=== PATIENT | male | born 1975 | race Two or more races ===

== ENCOUNTER 2018-07-31 02:50 | Observation (INO) | payer OTHER ==
[~2018-07-31] VITALS: Ht 180.3 cm; Wt 73.1 kg
--- NOTE | 2018-07-31 03:09 | NUR ---
RECORDS BEING REQ FROM [facility] TRIAGE NURSE STATES WAS ABLE TO ASCERTAIN THROUGH HOUSE PRINCIPAL THAT PT HAD SURGERY THERE ON THIS LOWER EXTREMITY RECENTLY.
[2018-07-31] MEDS ORDERED: RIVA20TA PO (04:03)
[2018-07-31] MEDS ORDERED: MORPHINE SULFATE 4 MG/ML, 1ML ONE (04:26)
[2018-07-31] MEDS ORDERED: ONDANSETRON 2MG/ML, 2ML ONE (04:27)
[2018-07-31 04:28] LABS: BASOPHILS # (AUTO) 0.04 x10^3/uL (0-0.1); BASOPHILS % (AUTO) 1 % (0-1); EOSINOPHILS # (AUTO) 0.24 x10^3/uL (0-0.4); EOSINOPHILS % (AUTO) 4 % (1-7); LYMPHOCYTES # (AUTO) 1.93 x10^3/uL (1-3.4); LYMPHOCYTES % (AUTO) 34 % (22-44); MD NO; MEAN CORPUSCULAR HEMOGLOBIN 31.3 pg (27.5-34.5); MEAN CORPUSCULAR HGB CONC 33.8 g/dL (33.2-36.2); MEAN CORPUSCULAR VOLUME 92.5 fL (81-97); MEAN PLATELET VOLUME 6.6 fL (7.4-10.4); MONOCYTES # (AUTO) 0.38 x10^3/uL (0.2-0.8); MONOCYTES % (AUTO) 7 % (2-9); NEUTROPHILS # (AUTO) 3.12 x10^3/uL (1.8-6.8); NEUTROPHILS % (AUTO) 55 % (42-75); PLATELET COUNT 418 x10^3/uL (130-400); RED CELL DISTRIBUTION WIDTH 15.5 % (9.4-14.8)
[2018-07-31] MEDS ORDERED: ONDANSETRON 2MG/ML, 2ML IVPush ONE (04:30)
[2018-07-31] MEDS ORDERED: MORPHINE SULFATE 4 MG/ML, 1ML IVPush PRN ×2 (04:30→06:30)
--- NOTE | 2018-07-31 04:33 | NUR ---
IV SITE STARTED, PT MEDICATED PER MAR
[2018-07-31 04:34] LABS: INTERNATIONAL NORMALIZED RATIO 1.55 (0.93-1.1); PROTHROMBIN TIME 16.2 Seconds (9.6-11.5)
[2018-07-31 04:36] LABS: ALANINE AMINOTRANSFERASE 24 U/L (12-78); ALBUMIN 3.1 g/dL (3.4-5.0); ANION GAP 6 mmol/L (5-15); CALCIUM 7.8 mg/dL (8.5-10.1); CHLORIDE 109 mmol/L (98-107); CREATININE 0.67 mg/dL (0.7-1.3)
[2018-07-31 04:39] LABS: ALKALINE PHOSPHATASE 66 U/L (45-117); BILIRUBIN,TOTAL 0.5 mg/dL (0.2-1.0); TOTAL PROTEIN 6.5 g/dL (6.4-8.2)
[2018-07-31] MEDS ORDERED: HEPARIN 25,000 UNITS/500ML PMX 500 ML IV PRN (05:30)
[2018-07-31] MEDS ORDERED: HEPARIN 5,000 UNITS/ML, 1ML IV PRN (05:30)
[2018-07-31] MEDS ORDERED: HEPARIN 5,000 UNITS/ML, 1ML IV ONE (05:30)
[2018-07-31] MEDS ORDERED: HEPARIN 5,000 UNITS/ML, 1ML ONE (05:30)
[2018-07-31] MEDS ORDERED: HEPARIN 25,000 UNITS/500ML PMX 500 ML ONE (05:33)
--- NOTE | 2018-07-31 05:55 | NUR ---
PT RESTING CALMLY, PROVIDED PT WITH XTRA WARM BLANKETS, PT MEDICATED PER MAR, IV HEPARIN GTT CHECKED BY 2 RN'S AND STARTED PER PROTOCOL. CALL LIGHT WITHIN REACH, AWAITING ROOM FOR TRANSFER
[2018-07-31 06:30] VITALS: BP 102/69
[2018-07-31] MEDS ORDERED: ONDANSETRON 2MG/ML, 2ML IVPush PRN ×2 (06:30→07:00)
[2018-07-31] MEDS ORDERED: ACETAMINOPHEN 325 MG TABLET PO PRN (07:00)
[2018-07-31] MEDS ORDERED: BISACODYL 10 MG SUPP PR PRN (07:00)
[2018-07-31] MEDS ORDERED: DOCUSATE 100 MG CAPSULE PO PRN (07:00)
[2018-07-31] MEDS ORDERED: GABAPENTIN 300 MG CAPSULE PO PRN (07:00)
[2018-07-31] MEDS ORDERED: POLYETHYLENE GLYCOL 17 GM PACKET PO PRN (07:00)
[2018-07-31] MEDS ORDERED: hydrALAzine 20 MG/ML, 1ML IVPush PRN (07:00)
[2018-07-31] MEDS ORDERED: SODIUM CHLORIDE FLUSH 10ML SYR IVF SCH (09:00)
[2018-07-31 09:30] VITALS: BP 108/65
== END 2018-07-31 12:45 | disposition home or self-care (01) ==
LOC: ED 05:57 → INTOOBSV 06:02 → EDIP 06:02 → 3NW 06:23 → DCLOUNGE 12:24
PROVIDERS: ADMIT Internal Medicine; ATTEND Internal Medicine
DX: I82.402 Acute embolism and thrombosis of unspecified deep veins of left lower extremity (principal); R07.89 Other chest pain; R06.02 Shortness of breath; D64.9 Anemia, unspecified; I82.90 Acute embolism and thrombosis of unspecified vein; E44.0 Moderate protein-calorie malnutrition; F10.10 Alcohol abuse, uncomplicated; F17.210 Nicotine dependence, cigarettes, uncomplicated; M79.89 Other specified soft tissue disorders; Z59.0 Homelessness
CPT/HCPCS: 36415; 71275; 80053; 85025; 85520; 85610; 85730; 93971; 96365; 96366; 96375; 99284; G0378; J1644; J2405